=== PATIENT | female | born 1950 | race Caucasian/White ===

== ENCOUNTER 2017-02-19 16:08 | Inpatient (IN) | payer OTHER ==
--- NOTE | ~2017-02-19 | HP ---
History And Physical [facility] [address] [place]. [address] NAME: MARIBEL STRICKLAND : 50 STATUS : ADM Debra PAT#: [id number] AGE: 66 ADM/REG DATE : 02/19/17 MR#: [id number] REPORT SERV DATE: 02/20/17 DICTATED BY: ELLIS YADAV DATE: 02/20/17 REPORT STATUS : Draft TRANSCRIBED BY: MODL DATE: 02/20/17 DATE OF ADMISSION: 02/19/2017 CHIEF COMPLAINT: Nausea, anorexia, and painful swallowing. HISTORY OF PRESENT ILLNESS: This is a 66-year-old female who has a history of motility disorder, gastric bypass surgery in the past, mesenteric artery disease along with depression and psychosis who presents to the emergency room at [facility] with the above-mentioned complaint. History is obtained from the patient and her , who is at bedside, and we reviewed data available on the [employer] system as well. According to the patient and her , she has had about 10 days of nausea, anorexia, and odynophagia. She could not eat or drink and has lost 16 pounds in weight in the last 10 days or so. The was able to take her to Dr. Ranulfo Mcbride's office who is her primary care physician, who immediately asked the patient to be taken to the emergency room at [facility]. The patient also states that she has had a fall three weeks ago with a fracture to her right clavicle. She has no pain or issues regarding this at this point. In the emergency room, she complained of some chest pain along with odynophagia. Initial evaluations were mostly unremarkable. Chest x-ray, CTA of the chest did not reveal any reason for her current symptoms. Hospitalist Service is asked to admit her for further evaluation and treatment. At the time of my evaluation, she denied any chest pain, but did continue to have odynophagia and almost refused to eat. She denied any palpitations or orthopnea. She had no cough, hemoptysis, night sweats, or weight loss. She has not had any recent falls or loss of consciousness. The only fall she has had is about three weeks ago when she fell and broke her clavicle. No history of recent fevers or chills. She did have severe nausea, but without any vomiting or diarrhea. She denied any hematemesis, hematochezia, or hematuria. No other history of recent travel or exposures other than those mentioned above. PAST MEDICAL HISTORY: Significant for history of essential hypertension, gastric bypass surgery for weight loss, history of mesenteric artery disease, depression and psychosis, hyperlipidemia, history of GI bleed in the past, chronic back pain, and recently a nondisplaced fracture of the distal right clavicle. SOCIAL HISTORY: She does not smoke, drink, or use recreational drugs. FAMILY HISTORY: Noncontributory. MEDICATIONS: Her medications at home were reviewed by me in the chart today and reordered by me. REVIEW OF SYSTEMS: As in history of present illness. All other systems were reviewed in detail and are quite unremarkable. History And Physical [address] [address] NAME: MARIBEL STRICKLAND : 50 STATUS : ADM Debra PAT#: [id number] AGE: 66 ADM/REG DATE : 02/19/17 MR#: [id number] REPORT SERV DATE: 02/20/17 DICTATED BY: ELLIS YADAV DATE: 02/20/17 REPORT STATUS : Draft TRANSCRIBED BY: ANOOP DATE: 02/20/17 PHYSICAL EXAMINATION: GENERAL: This is a pleasant 66-year-old, not in any acute distress. HEENT: Her head is atraumatic, normocephalic. She is alert, awake, oriented to time, place, and person. Her pupils are equal, reacting to light and accommodating. External ocular muscles are intact. Membranes are moist and pink. Sclerae are nonicteric. NECK: Supple with no jugular venous distention, lymphadenopathy, or thyromegaly. LUNGS: Clear to auscultation with no wheezes, rubs, or crackles. HEART: Sounds were regular with no murmurs, rubs, or gallops. ABDOMEN: Soft, nontender. Bowel sounds are present. EXTREMITIES: Showed no cyanosis, clubbing, or edema. NEUROLOGIC: Grossly intact. No focal sensory or motor deficits. Higher functions appeared intact. She was able to move all four extremities. VITAL SIGNS: Her vital signs today showed a temperature of 98.6, pulse was 115, respirations were 23, and blood pressure was 92/66 upon arrival. Oxygen saturations were 97%, breathing 2 L of oxygen via nasal cannula. LABORATORY DATA: Reviewed on the [employer] system showed a pH of 7.37 on arterial blood gas, pCO2 was 30, PaO2 of 93, and bicarb was 17.0. Sodium was 131, potassium 5.2, chloride 104, and CO2 was 20. BUN was 47 with a creatinine of 1.33, blood glucose was 108. Her magnesium was 2.8 today. Troponin today was 0.02, and CBC showed a white blood cell count of 11,400, hemoglobin was 15.5, hematocrit 46.8, and platelet count was 383,000. Urinalysis was not performed today. Films of the chest x-ray and CTA of the chest were reviewed by me on the PACS today and interpreted by me. The CT of the chest did not reveal any acute pulmonary emboli. There are diffuse emphysematous changes in the lungs bilaterally. A 12-lead EKG done in the emergency room was reviewed and interpreted by me. There is sinus tachycardia with a rate of 136. Chest x-ray showed no acute infiltrates or effusions. There is fracture of the right clavicle as mentioned above. IMPRESSION: 1. Chest pain. 2. Intractable nausea and vomiting. 3. Hypotension. 4. Abnormal weight loss of 16 pounds in 10 days. 5. Essential hypertension. 6. History of gastric bypass surgery. 7. Mesenteric artery disease. 8. Depression and psychosis. 9. Chronic back pain. 10.Nondisplaced fracture of the distal right clavicle. 11.Sinus tachycardia. PLAN: We will admit Mrs. Strickland to the Hospitalist Service with cardiac telemetry for a 24- hour observation period. We will follow serial troponins to rule out any acute coronary syndrome, although I think it may be more of an odynophagia. Her troponins in the ER were normal. Meanwhile, we will go ahead and hold her diuretics and RAYMOND inhibitors tonight and reevaluate her in the morning. We will start her on IV fluid boluses now and then continue History And Physical [address] [place]. [address] NAME: MARIBEL STRICKLAND : 50 STATUS : ADM Debra PAT#: [id number] AGE: 66 ADM/REG DATE : 02/19/17 MR#: [id number] REPORT SERV DATE: 02/20/17 DICTATED BY: ELLIS YADAV DATE: 02/20/17 REPORT STATUS : Draft TRANSCRIBED BY: ANOOP DATE: 02/20/17 replacement therapy. With this, her hypotension appears to be resolving. We will continue and monitor, and we will also go ahead and check chemistry, electrolytes, and CBC in the morning. She has had a gastric bypass surgery for weight loss in the past, and although the CTA of the chest was negative, we will go ahead and order a CT of the abdomen and pelvis to further evaluate for any abnormalities. She has been given a sling for her right arm in the ER, and we will also provide pain control actually on an as-needed basis. She will be on unfractionated heparin for DVT prophylaxis while here. Hospitalist Service will be following her during her stay here. /ANOOP Ellis Yadav M.D. / [id number] CC: Mike Schultz Jr, MD
--- NOTE | ~2017-02-19 | DS ---
Discharge Summary [facility] [address] [place]. [address] NAME: MARIBEL STRICKLAND : 50 STATUS : DIS IN PAT#: [id number] AGE: 66 ADM/REG DATE : 02/19/17 MR#: [id number] REPORT SERV DATE: 02/23/17 DICTATED BY: RADHA FRANCO DATE: 02/22/17 REPORT STATUS : Draft TRANSCRIBED BY: MODL DATE: 02/22/17 ADMISSION DATE: 02/19/2017 DISCHARGE DATE: 02/22/2017 REASON FOR ADMISSION: Chest pain, intractable nausea, vomiting, weight loss, dehydration, dyspnea on exertion. HPI: Please refer to Dr. Carmona's history and physical dated 02/20/2017 for complete details regarding the patient's admission. The patient was admitted to the Hospitalist Service for management of the above issues. HOSPITAL COURSE: The patient had an uncomplicated hospital course. Upon further review, it was felt that the patient had more of retrosternal chest pain likely due to esophagitis. The patient was admitted to the CDU, and placed on telemetry. She had 3 cardiac enzymes which were negative. The EKG showed normal sinus rhythm and was interpreted as a normal EKG. The patient was started on IV fluids. After reviewing her past history, the patient had a known history of candidal esophagitis. I started her on IV Diflucan and Carafate. With IV fluids, Diflucan and Carafate, the patient felt much better the following day. On the day prior to discharge, she was ambulating without any shortness of breath and was requesting to go home. The patient did have a CT angio of her chest, done in the ER, which showed no pulmonary emboli. Findings were consistent with COPD and no lung infiltrates. CT scan of the abdomen and pelvis without contrast, showed diffusely air distended large bowel to the level of the proximal sigmoid colon, although no underlying bowel wall thickening, diverticulosis, or diverticulitis pattern. There was no associated small-bowel dilatation. The patient is back to her baseline and will be discharged home in stable condition to follow up with Dr. Mcbride in 1 week. DISCHARGE DIAGNOSES: 1. Retrosternal chest pain, likely GI related. 2. Dehydration with acute kidney injury, now resolved. 3. A 12-pound weight loss likely from decreased oral intake from esophagitis. 4. History of gastric bypass. 5. History of peptic ulcer disease. 6. Nausea, vomiting secondary to motility disorder, now resolved. 7. Presumed recurrence of candidal esophagitis, now improving. PROCEDURES: Include CT angio of the chest, a chest x-ray, CT scan of the abdomen and pelvis without contrast. DISCHARGE MEDICATIONS: Include calcium carbonate 1200 mg twice a day, vitamin B12, vitamin D, Flonase, Zyrtec 10 mg at bedtime, Robaxin 750 mg four times a day, Prilosec 40 mg twice a day, paroxetine 20 mg at bedtime, Mirapex 0.5 mg at bedtime, Ambien 10 mg at bedtime, Carafate 1 g before meals, lisinopril 40 mg daily, and hydrochlorothiazide 12.5 mg every morning, Ultram p.r.n., Zofran p.r.n., Diflucan 200 mg once a day for 14 days, Spiriva inhaler one puff once a day, albuterol MDI p.r.n. wheezing. Discharge Summary [address] [address] NAME: MARIBEL STRICKLAND : 50 STATUS : DIS IN PAT#: [id number] AGE: 66 ADM/REG DATE : 02/19/17 MR#: [id number] REPORT SERV DATE: 02/23/17 DICTATED BY: RADHA FRANCO DATE: 02/22/17 REPORT STATUS : Draft TRANSCRIBED BY: ANOOP DATE: 02/22/17 FOLLOWUP: The patient will follow up with Dr. Mcbride as scheduled in 1 week and encouraged her to go to obtain some PFTs to know the severity of her COPD as this is a new diagnosis for her. This is Dr. Radha Franco spending over 30 minutes in discharge planning and coordination of care of Ms. Strickland. ADI/ANOOP Radha Franco MD / [id number] CC: MD Ranulfo Francis M.D.
[2017-02-19 15:42] LABS: BASOPHILS 0.1 %; BASOPHILS ABSOLUTE 0.01 10/3/uL (0.0-0.16); EOSINOPHILS 0 %; IMMATURE GRANULOCYTES 0.4 %; IMMATURE GRANULOCYTES ABSOLUTE 0.04 10/3/uL (0.0-0.11); LYMPHOCYTES 7.5 %; LYMPHOCYTES ABSOLUTE 0.86 10/3/uL (0.67-4.30); MEAN CORPUS HGB CONC 33.1 g/dL (32.0-36.0); MONOCYTES 8.6 %; MONOCYTES ABSOLUTE 0.98 10/3/uL (0.21-1.20); NEUTROPHILS 83.4 %; NEUTROPHILS ABSOLUTE 9.52 10/3/uL (2.02-8.40); RBC DISTRIBUTION WIDTH 16.2 % (12.0-16.0)
[2017-02-19 15:45] LABS: ER CBC TAT 0 Hrs 07 Mins; HEMATOCRIT 46.8 % (36.0-48.0); HEMOGLOBIN 15.5 g/dL (12.0-16.0); MANUAL DIFF NO %; MEAN CORPUSCULAR HEMOGLOB 32.3 pg (26.0-34.0); MEAN CORPUSCULAR VOLUME 97.5 fL (80-100); PLATELET COUNT 383 10/3/uL (150-400); WHITE BLOOD CELLS 11.4 10/3/uL (4.5-10.5)
[2017-02-19 15:50] LABS: INTERNATIONAL NORMAL RATI 1.1 UNITS (-); PROTIME (NOT ORD) 14.4 SEC (12.0-14.5)
[2017-02-19 15:51] LABS: PARTIAL THROMBO TIME 25.2 SEC (22.5-37.2)
[2017-02-19 16:01] LABS: CALCIUM, SERUM 8.6 MG/DL (8.5-10.4); CHEST PAIN PROFILE TAT 0 Hrs 23 Mins; CHLORIDE, SERUM 104 MMOL/L (96-112); SODIUM, SERUM 139 MMOL/L (135-148); TROPONIN I <0.02 NG/ML (<0.05)
[2017-02-19 16:02] LABS: BUN (BLOOD UREA NITROGEN) 47 MG/DL (6-23); CO2 (CARBON DIOXIDE) 20 MMOL/L (24-34); CREATININE 1.33 MG/DL (0.55-1.02); GFR AFRICAN AMERICAN 48 ML/MIN (>=60); GFR NON AFRICAN AMERICAN 42 ML/MIN (>=60); GLUCOSE, SERUM 108 MG/DL (60-99); POTASSIUM, SERUM 5.2 MMOL/L (3.5-5.3)
[~2017-02-19 16:08] MED LIST: ACET500CAP PO; ALEVE220 MG PO; AMB10 PO; APRES50 PO; ASAB; ASAB PO; AT25 PO; ATARAX50B PO; ATEN50 PO; B COMPLETE PO; BENTYL10 PO; CALTRAT600 PO; CAT1 PO; CAT3 PO; CELEXA40 MG PO; D 5000 PO; DSS50 PO; FERROUS SULF325 M1 PO; FESO4 PO; FLAG500TAB PO; FLONASE NAS; FLUCON1 PO; HALF81 PO; HYDROCHLOROT25 MG PO; IMDUR60 PO; INVEGA PO; ISOPTIN SR180 MG PO; KLONO1 PO; KLONO5 PO; LISINOPRIL40 MG PO; LOP25 PO; LORT7 PO; MAX25 PO; METHOC750B PO; MIRAPEX250 PO; MIRAPEX5 PO; MUCINEX1200 MG PO; NORV10 PO; NORV5 PO; PAX20 PO; PAXIL40 MG PO; PLAVIX PO; PR25 PO; PRILO PO; PRILOSEC40 MG PO; PRIM50B PO; PRIN10 PO; PROTONIX PO; REMERON30 MG PO; SUCR PO; THERGRANM PO; TRAZ100 PO; TRAZ50 PO; TRAZODONE300 MG PO; TUMSROLL PO; ULTRAM50 PO; VERELAN360 MG PO; VITAMIN B-121000 MC1 SL; VITAMIN B-122500 MCG SL; VITAMIN D1000 UNI1 PO; ZANAFLEX 4 MG TA4 MG PO; ZESTRIL30 MG PO; ZITH250 PO; ZOFRAN8 PO; ZYPREXA10 MG PO; ZYPREXA15 MG PO; ZYRTEC ALLGY10 MG PO
[2017-02-19 18:37] LABS: ALLENS TEST Pos; BE (BASE EXCESS) -6.9 MEQ/L (0 +/- 2.5); HEMOBLOGIN CONTENT 13.4 G/DL (12-16); INSTRUMENT SERIAL # 8087; O2 CONTENT 17.6 VOL% (18-24); OPERATOR ID 14335; PCO2 (CO2 TENSION) 30 MMHG (35-45); PO2 (O2 TENSION) 93 MMHG (79-93); SAMPLE Arterial; pH 7.37 (7.37-7.43)
[2017-02-20 06:00] LABS: BASOPHILS 0.3 %; BASOPHILS ABSOLUTE 0.02 10/3/uL (0.0-0.16); EOSINOPHILS 0 %; HEMOGLOBIN 13.2 g/dL (12.0-16.0); IMMATURE GRANULOCYTES 0.4 %; IMMATURE GRANULOCYTES ABSOLUTE 0.03 10/3/uL (0.0-0.11); LYMPHOCYTES ABSOLUTE 2.04 10/3/uL (0.67-4.30); MEAN CORPUSCULAR HEMOGLOB 32.2 pg (26.0-34.0); MEAN CORPUSCULAR VOLUME 97.6 fL (80-100); MONOCYTES 13.2 %; MONOCYTES ABSOLUTE 1.04 10/3/uL (0.21-1.20); NEUTROPHILS 60.1 %; NEUTROPHILS ABSOLUTE 4.73 10/3/uL (2.02-8.40); PLATELET COUNT 299 10/3/uL (150-400); WHITE BLOOD CELLS 7.9 10/3/uL (4.5-10.5)
[2017-02-20 06:01] LABS: MANUAL DIFF NO %
[2017-02-20 06:22] LABS: BUN (BLOOD UREA NITROGEN) 30 MG/DL (6-23); CALCIUM, SERUM 7.6 MG/DL (8.5-10.4); CHLORIDE, SERUM 107 MMOL/L (96-112); CO2 (CARBON DIOXIDE) 23 MMOL/L (24-34); CREATININE 0.89 MG/DL (0.55-1.02); GFR AFRICAN AMERICAN 78 ML/MIN (>=60); GFR NON AFRICAN AMERICAN 68 ML/MIN (>=60); GLUCOSE, SERUM 80 MG/DL (60-99); PHOSPHORUS, SERUM 2.5 MG/DL (2.5-4.5); POTASSIUM, SERUM 4.5 MMOL/L (3.5-5.3); SODIUM, SERUM 141 MMOL/L (135-148)
[2017-02-21 05:23] LABS: BASOPHILS 0.1 %; BASOPHILS ABSOLUTE 0.01 10/3/uL (0.0-0.16); EOSINOPHILS 0 %; HEMATOCRIT 38.6 % (36.0-48.0); HEMOGLOBIN 12.5 g/dL (12.0-16.0); IMMATURE GRANULOCYTES 0.4 %; IMMATURE GRANULOCYTES ABSOLUTE 0.03 10/3/uL (0.0-0.11); LYMPHOCYTES 27.2 %; LYMPHOCYTES ABSOLUTE 2.03 10/3/uL (0.67-4.30); MEAN CORPUS HGB CONC 32.4 g/dL (32.0-36.0); MEAN CORPUSCULAR HEMOGLOB 31.8 pg (26.0-34.0); MEAN CORPUSCULAR VOLUME 98.2 fL (80-100); MEAN PLATELET VOLUME 9.9 fL (9.2-13.0); MONOCYTES 11.5 %; MONOCYTES ABSOLUTE 0.86 10/3/uL (0.21-1.20); NEUTROPHILS 60.8 %; NEUTROPHILS ABSOLUTE 4.52 10/3/uL (2.02-8.40); PLATELET COUNT 280 10/3/uL (150-400); RBC DISTRIBUTION WIDTH 16.1 % (12.0-16.0); RED CELL COUNT 3.93 10/6/uL (4.0-5.6); WHITE BLOOD CELLS 7.5 10/3/uL (4.5-10.5)
[2017-02-21 05:24] LABS: MANUAL DIFF NO %
[2017-02-21 05:36] LABS: CHLORIDE, SERUM 108 MMOL/L (96-112); CO2 (CARBON DIOXIDE) 27 MMOL/L (24-34); CREATININE 0.61 MG/DL (0.55-1.02); GFR AFRICAN AMERICAN 109 ML/MIN (>=60); GFR NON AFRICAN AMERICAN 94 ML/MIN (>=60); GLUCOSE, SERUM 80 MG/DL (60-99); PHOSPHORUS, SERUM 2.3 MG/DL (2.5-4.5); POTASSIUM, SERUM 4.5 MMOL/L (3.5-5.3); SODIUM, SERUM 144 MMOL/L (135-148)
[2017-02-21 05:42] LABS: BUN (BLOOD UREA NITROGEN) 12 MG/DL (6-23)
[2017-02-22] MEDS ORDERED: FLUCON2 PO (09:20)
[2017-02-22] MEDS ORDERED: SUCR PO (09:20)
[2017-02-22] MEDS ORDERED: PROAIR HFA INH (09:22)
[2017-02-22] MEDS ORDERED: SPIRIVA INH (09:23)
== END 2017-02-22 09:45 | disposition home or self-care (01) | DRG 683 ==
LOC: ER 16:08 → CDU1 19:53 → CDU2 20:59
PROVIDERS: Hospitalist; Internal Medicine
DX: N17.9 Acute kidney failure, unspecified (principal); Z68.1 Body mass index [BMI] 19.9 or less, adult; F32.3 Major depressive disorder, single episode, severe with psychotic features; K27.9 Peptic ulcer, site unspecified, unspecified as acute or chronic, without hemorrhage or perforation; E86.0 Dehydration; K20.9 Esophagitis, unspecified; R63.0 Anorexia; R13.10 Dysphagia, unspecified; I10 Essential (primary) hypertension; M54.9 Dorsalgia, unspecified; E78.5 Hyperlipidemia, unspecified; R00.0 Tachycardia, unspecified; S42.034D Nondisplaced fracture of lateral end of right clavicle, subsequent encounter for fracture with routine healing; W19.XXXD Unspecified fall, subsequent encounter; Z98.84 Bariatric surgery status
CPT/HCPCS: 36600; 71010; 71275; 74176; 80048; 81001; 82805; 83690; 83735; 84100; 84443; 84484; 85025; 85610; 85730; 93005; 94640; 99285; A9270-GY; J1450; Q9967